=== PATIENT | female | born 1945 | race Caucasian/White ===

== ENCOUNTER 2017-03-23 07:00 | Day surgery (SDC) | payer BC, MEDICARE ==
[~2017-03-23] VITALS: Ht 170.2 cm; Wt 86.8 kg
[~2017-03-23 07:00] MED LIST: ASPI81 PO; HYDR-3129 PO; LOVA1TAB47 PO; METO25 PO; PREM0.622 PO; VICO7.5T PO; WAL-10TA2 PO
[2017-03-23 07:14] VITALS: BP 150/97; PULSE 63; RESP 20; TEMP 98.1; O2SAT 95
[2017-03-23] MEDS ORDERED: CLAR10CA3 PO (07:26)
[2017-03-23] MEDS ORDERED: HYDR-3366 PO (07:26)
[2017-03-23] MEDS ORDERED: HYDR-3113 PO (07:26)
[2017-03-23] MEDS ORDERED: LOVA20TA PO (07:26)
[2017-03-23] MEDS ORDERED: METO25TA3 PO (07:26)
[2017-03-23] MEDS ORDERED: ASPI81CH6 CHEW (07:26)
[2017-03-23] MEDS ORDERED: SODIUM CHLOR 0.9% 1000 ML INJ 1,000 ML IV SCH (07:30)
[2017-03-23] MEDS ORDERED: CHLORHEXIDINE GLUCONATE 2 % 1 PACK (2 CLOTHS) TOPICAL PRN (07:30)
[2017-03-23] MEDS ORDERED: POVIDONE IODINE 5% (ANTISEPSIS KIT) 4 APPLICATIONS EACH NARE PRN (07:30)
[2017-03-23] MEDS ORDERED: ceFAZolin 2 GM PREMIX 50 ML IV SCH (07:30)
[2017-03-23] MEDS ORDERED: METOPROLOL TARTRATE 25 MG TAB PO PRN (07:30)
[2017-03-23] MEDS ORDERED: SODIUM CHLORID 0.9% 500 ML IV PRN (07:30)
[2017-03-23] MEDS ORDERED: LACTATED RINGER'S 1000 ML IV PRN (07:30)
[2017-03-23 08:34] LABS: BICARBONATE 25.5 MEQ/L (21.0-32.0); CALCIUM 8.9 MG/DL (8.5-10.1); CREATININE 0.77 MG/DL (0.50-1.00)
[2017-03-23] MEDS ORDERED: LIDOCAINE HCL 1% 20 ML VIAL ONE (10:33)
[2017-03-23] MEDS ORDERED: MIDAZOLAM HCL 2 MG/2 ML VIAL ONE (10:44)
--- NOTE | 2017-03-23 12:35 | RADRPT ---
EXAM DATE/TIME: 03/23/2017 11:32 [facility] COMPARISON: No previous studies available for comparison. INDICATIONS : Left renal mass BIOPSY SITE: Left kidney Anesthesia and pain control was provided by the Anesthesia department. Prophylactic antibiotics were administered with appropriate pre-procedure timing. DEVICE(S): 1.) 18 gauge Temno core biopsy needle MEDICAL HISTORY : Hypertension. Cardiovascular disease. SURGICAL HISTORY : None. ENCOUNTER: Initial ACUITY: 1 day PAIN SCORE: 0/10 LOCATION: Left flank A total of one core specimen(s) were obtained and sent to the laboratory for pathologic evaluation. PROCEDURE: 1. CT guided renal biopsy. Prior to the procedure informed consent was obtained. Any appropriate prior imaging studies were rev iewed. Using automated exposure control and adjustment of the mA and/or kV according to patient size, radiat ion dose was kept as low as reasonably achievable to obtain optimal diagnostic quality images. DICOM format image data is available electronically for review and comparison. The site was prepped in a sterile fashion. Full sterile technique was used, including cap, mask, thomas rile gloves and gown and a large sterile sheet. Hand hygiene and 2% chlorhexidine and/or betadine/al cohol prep was utilized per protocol for cutaneous antisepsis. The skin and subcutaneous tissues wer e infiltrated with local anesthetic solution. With CT guidance the previously identified target was localized. 2 mild lobes were placed into the le josette. An 18 gauge Temno biopsy needle was advanced between the proton into the central aspect of the lesion as well. Biopsy was performed using the prescribed needle as above. Adequate hemostasis was obtaine d with compression at the puncture site. Follow-up CT scan reveals no hemorrhage. The patient tolerated the procedure well and there were no complications. The patient was returned to the Radiology Outpatient Unit in stable condition. CONCLUSION: Uncomplicated CT guided biopsy. Rancho Cm MD on March 23, 2017 at 12:31 Board Certified Radiologist. This report was verified electronically.
--- NOTE | 2017-03-23 12:47 | PD.RAD ---
Post Procedure Progress Note Pre Procedure Diagnosis: (1) Left kidney mass Post Procedure Diagnosis: (1) Left kidney mass Procedure Date: Mar 23, 2017 Supervising Radiologist: Rancho Cm Estimated blood loss: None Anesthesia: General, Local Plan of Activity Patient to Unit: PACU Patient Condition: Good Additional Comments: Successful biopsy and cryoablation of the left renal mass. Pathology pending Full dictated report to follow See PACS Report for procedural detail/treatment Rancho Cm MD Mar 23, 2017 12:46
[2017-03-23] MEDS ORDERED: HYDROmorphone HCL PF 2 MG/ML VIAL ONE (13:16)
[2017-03-23 14:00] VITALS: BP 135/69; PULSE 61; RESP 20; TEMP 97.9; O2SAT 93
[2017-03-23 14:30] VITALS: BP 145/53; PULSE 67; RESP 19; O2SAT 95
[2017-03-23] MEDS ORDERED: DO NOT ADM ANY ANTICOAGULANT DRUGS PRN (14:30)
--- NOTE | 2017-03-23 14:55 | RADRPT ---
EXAM DATE/TIME: 03/23/2017 11:32 INDICATIONS : Left renal mass Anesthesia and pain control was provided by the Anesthesia department. DEVICE(S): 1.) 16 gauge Cryoablation probe x 2 MEDICAL HISTORY : Hypertension. Cardiovascular disease. SURGICAL HISTORY : None. ENCOUNTER: Initial ACUITY: 1 day PAIN SCORE: 0/10 LOCATION: Left flank PROCEDURE : 1. CT guided cryoablation. Under sterile conditions and using aseptic technique with CT guidance the mass was localized and sati sfactory approach was taken to access the lesion. Using automated exposure control and adjustment of the mA and/or kV according to patient size, radiation dose was kept as low as reasonably achievable to obtain optimal diagnostic quality images. DICOM format image data is available electronically for review and comparison. [address] Cryoprobes were employed using percutaneous technique employing the prescribed probes . A freeze-thaw, freeze-thaw technique was employed and serial imaging demonstrated an ice ball enco mpassing the entire lesion. Post procedure images demonstrate expected postoperative changes without evidence of hematoma. CONCLUSION: Uncomplicated cryoablation as above. Rancho Cm MD on March 23, 2017 at 14:43 Board Certified Radiologist. This report was verified electronically.
[2017-03-23 15:00] VITALS: BP 117/43; PULSE 72; RESP 18; O2SAT 96
[2017-03-23 15:53] LABS: AUTOMATED NEUTROPHIL # 8.9 TH/MM3 (1.8-7.7); BASOPHIL % 0.3 % (0.0-2.0); EOSINOPHIL % 0.3 % (0.0-4.0); HEMATOCRIT 40.6 % (35.0-46.0); HEMOGLOBIN 13.9 GM/DL (11.6-15.3); LYMPH % 8.2 % (9.0-44.0); LYMPHOCYTE # 0.8 TH/MM3 (1.0-4.8); MEAN CELL VOLUME 84.3 FL (80.0-100.0); MEAN CORPUSCULAR HEMOGLOBIN 28.8 PG (27.0-34.0); MEAN CORPUSCULAR HGB CONC 34.2 % (32.0-36.0); MEAN PLATELET VOLUME 8.2 FL (7.0-11.0); MONO % 1.1 % (0.0-8.0); MONOCYTE # 0.1 TH/MM3 (0-0.9); NEUT % 90.1 % (16.0-70.0); PLATELET COUNT 229 TH/MM3 (150-450); RED BLOOD COUNT 4.81 MIL/MM3 (4.00-5.30); RED CELL DISTRIBUTION WIDTH 13.8 % (11.6-17.2); WHITE BLOOD COUNT 9.9 TH/MM3 (4.0-11.0)
[2017-03-23 16:00] VITALS: BP 124/56; PULSE 74; RESP 17; O2SAT 97
--- NOTE | 2017-03-23 19:24 | EKG ---
Date Performed: 03/23/2017 Time Performed: 07:30:08 PTAGE: 71 years EKG: SINUS BRADYCARDIA BORDERLINE ECG Since the prior tracing, there has been no significant wes nge PREVIOUS TRACING : 12/11/2013 16.54 DOCTOR: Johny Cueva Interpretating Date/Time 03/23/2017 19:24:02
== END 2017-03-23 16:30 | disposition home or self-care (01) ==
LOC: HSDC 07:00 → HRIP 07:04 → HROP 16:30
PROVIDERS: ATTEND Urology
DX: C64.2 Malignant neoplasm of left kidney, except renal pelvis (principal); I50.9 Heart failure, unspecified; I25.2 Old myocardial infarction; E78.00 Pure hypercholesterolemia, unspecified; R42 Dizziness and giddiness; I25.10 Atherosclerotic heart disease of native coronary artery without angina pectoris; M19.90 Unspecified osteoarthritis, unspecified site
CPT/HCPCS: 00862; 50200; 50593; 77012; 77013; 80048; 82948; 85025; 88305; 93005; C2618; J1170; J2250; J3010; J7030; 88307

== ENCOUNTER 2017-03-29 09:25 | Day surgery (SDC) | payer BC, MEDICARE ==
[~2017-03-29 09:25] MED LIST changes: -ASPI81 PO; +ASPI81CH6 CHEW; +CLAR10CA3 PO; +HYDR-3113 PO; -HYDR-3129 PO; +HYDR-3366 PO; -LOVA1TAB47 PO; +LOVA20TA PO; -METO25 PO; +METO25TA3 PO; -PREM0.622 PO; -VICO7.5T PO; -WAL-10TA2 PO
[2017-03-29 09:39] VITALS: BP 174/84; PULSE 61; RESP 20; TEMP 98; O2SAT 98
[2017-03-29] MEDS ORDERED: MEDI220T PO (10:16)
[2017-03-29] MEDS ORDERED: IBUP200C PO (10:16)
[2017-03-29] MEDS ORDERED: DIATRIZOATE MEGLUM/DIATRIZOATE SOD 9 ML CUP PO ONE (11:00)
[2017-03-29] MEDS ORDERED: IOHEXOL 350 MG/ML 10 ML VIAL (for RAD DIAG) IVCONTRAST ONE (14:14)
--- NOTE | 2017-03-29 14:28 | RADRPT ---
EXAM DATE/TIME: 03/29/2017 14:06 This report includes an Addendum and supersedes previous reports for this exam. [facility] COMPARISON: CT GUIDED CRYO ABLATION RENAL, LEFT, March 23, 2017, 11:32. INDICATIONS : Abdominal pain following croablation on 03/25 IV CONTRAST: 96 cc Omnipaque 350 (iohexol) IV ORAL CONTRAST: Prescribed oral contrast ingested. RADIATION DOSE: 12.81 CTDIvol (mGy) MEDICAL HISTORY : None SURGICAL HISTORY : Left renal cryoablation ENCOUNTER: Initial ACUITY: 4 - 6 days PAIN SCALE: 8/10 LOCATION: Left lower quadrant TECHNIQUE: Volumetric scanning of the abdomen and pelvis was performed. Using automated exposure control and ad justment of the mA and/or kV according to patient size, radiation dose was kept as low as reasonably achievable to obtain optimal diagnostic quality images. DICOM format image data is available electro nically for review and comparison. FINDINGS: The limited portion of the lung base visualized is clear. There is atherosclerotic plaquing in the co ronary arteries. The appearance of the liver, spleen, pancreas and adrenal glands is within normal limits. The right k idney is unremarkable in appearance. Examination of the left kidney demonstrates changes consistent with the patient's recent cryoablation . No free intraperitoneal air is identified. No significant free fluid is seen within the abdomen or th e retroperitoneum. There is no significant retroperitoneal lymphadenopathy. Imaging through the pelvis is provided. This demonstrates the visualized loops of small and large bow el to be normal in appearance. No inflammatory changes are present. No iliac or inguinal adenopathy i s seen. There is no free fluid within the pelvis. The anterior abdominal wall is intact. CONCLUSION: 1. There are changes in the left kidney consistent with the patient's recent cryoablation. There is n o evidence of complication. 2. No free air or free fluid is identified. No inflammatory changes are evident. No definite abnormal ity to explain the patient's left lower quadrant pain is identified. Rancho Cm MD on March 29, 2017 at 14:24 Board Certified Radiologist. This report was verified electronically. ADDENDUM: Reformatted images in the coronal plane demonstrates subtle swelling and possible inflammatory change involving the outermost margin of the left so last period there is no evidence of abscess in this ar ea. Rancho Cm MD on March 29, 2017 at 15:31 Board Certified Radiologist. This report was verified electronically.
--- NOTE | 2017-03-29 15:32 | RADRPT ---
EXAM DATE/TIME: 03/29/2017 14:49 [facility] COMPARISON : No previous studies available for comparison. INDICATIONS : left sided abdominal pain s/p left renal ablation OBJECTIVE: Temperature: 98.0 Heart Rate: 61 Blood Pressure: 174/84 Respiratory: 20 Oximetry: 98 PNEUMONIA VACCINE: HISTORY OF PRESENT ILLNESS: The patient is a 71-year-old who underwent cryoablation of a left renal mass. 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 The patient did very well po st procedure however the patient returned today secondary to increasing pain predominantly in the lef t groin. PAST MEDICAL HISTORY : Renal cell carcinoma.AR Hypertension.Vertigo Congestive heart failure. Arthritis. PAST SURGICAL HISTORY : Appendectomy. Back Surg Hysterectomy. Left ankle surg Cardiac stents SOCIAL HISTORY : NKDA Aspirin Pinson Vicoden Ibuprofen Loratadine Lavastatin Metoprol Naproxen PHYSICAL EXAMINATION: The patient does not have significant tenderness to abdominal palpation. There are no findings to ind icate peritonitis. There is significant tenderness down the left groin. This changes with manipulation of the left leg. IMAGING STUDIES: CT scan of the abdomen and pelvis was performed. This demonstrates the expected post-ablation changes within the left renal mass. Of note, the on the coronal reformatted imaging there is some subtle inf lammatory change which is touching the left so as muscle. This is felt to likely be the etiology of t he patient's pain. ASSESSMENT: The patient's pain appears to be musculoskeletal in etiology likely from the left iliopsoas muscle. PLAN: The patient will be given Celebrex 200 mg p.o. b.i.d. for 10 days. She was advised to call in 24 hour s and advised us how she is doing doing. If for symptoms worsen or she develops or chills she was adv ised to go to the emergency department. TIME SPENT: 30 minutes. Rancho Cm MD on March 29, 2017 at 15:26 Board Certified Radiologist. This report was verified electronically.
== END 2017-03-29 15:00 | disposition home or self-care (01) ==
LOC: HROP 09:25 → HRIP 09:28 → HROP 15:00
PROVIDERS: ATTEND Radiology Body Imaging
DX: C64.2 Malignant neoplasm of left kidney, except renal pelvis (principal); I11.0 Hypertensive heart disease with heart failure; I50.9 Heart failure, unspecified
CPT/HCPCS: 74177; Q9963; Q9967

== ENCOUNTER 2017-04-01 20:33 | Emergency (ER) | payer MEDICARE, BC ==
[~2017-04-01] VITALS: Ht 165.1 cm; Wt 78.0 kg
[~2017-04-01 20:33] MED LIST changes: +IBUP200C PO; +MEDI220T PO
[2017-04-01 20:39] VITALS: BP 206/94; PULSE 66; RESP 16; TEMP 99.4; O2SAT 99
[2017-04-01] MEDS ORDERED: SODIUM CHLOR 0.9% 1000 ML INJ 1,000 ML IV SCH (22:32)
[2017-04-01 22:36] VITALS: BP 168/70; PULSE 62; RESP 18; O2SAT 98; O2SAT 99
[2017-04-01] MEDS ORDERED: DIAZ5 PO (22:38)
[2017-04-01] MEDS ORDERED: SODIUM CHLORIDE 0.9% FLUSH 10 ML FLUSH IV FLUSH PRN (22:45)
[2017-04-01] MEDS ORDERED: MORPHINE SULFATE 4 MG/ML INJ IV PUSH ONE (22:45)
[2017-04-01] MEDS ORDERED: ONDANSETRON HCL 4 MG/2 ML VIAL IVP ONE (22:45)
[2017-04-01 22:55] LABS: AUTOMATED NEUTROPHIL # 5.6 TH/MM3 (1.8-7.7); BASOPHIL % 0.5 % (0.0-2.0); EOSINOPHIL # 0.1 TH/MM3 (0-0.4); EOSINOPHIL % 0.9 % (0.0-4.0); HEMATOCRIT 37.7 % (35.0-46.0); HEMOGLOBIN 13.2 GM/DL (11.6-15.3); LYMPH % 19.7 % (9.0-44.0); LYMPHOCYTE # 1.6 TH/MM3 (1.0-4.8); MEAN CELL VOLUME 81.8 FL (80.0-100.0); MEAN CORPUSCULAR HEMOGLOBIN 28.7 PG (27.0-34.0); MEAN CORPUSCULAR HGB CONC 35.1 % (32.0-36.0); MONO % 7.9 % (0.0-8.0); MONOCYTE # 0.6 TH/MM3 (0-0.9); PLATELET COUNT 277 TH/MM3 (150-450); RED BLOOD COUNT 4.61 MIL/MM3 (4.00-5.30); RED CELL DISTRIBUTION WIDTH 13.3 % (11.6-17.2); WHITE BLOOD COUNT 7.9 TH/MM3 (4.0-11.0)
--- NOTE | 2017-04-01 23:02 | PD ---
HPI Chief Complaint: Pain: Acute or Chronic Time Seen by Provider: 22:27 Travel History International Travel<30 days: No Contact w/Intl Traveler<30days: No Traveled to known affect area: No History of Present Illness HPI 71-year-old female complains of pain in the left abdomen. She has had it for about 3 days. Pain is severe. Nausea is reported due to pain being so severe. No fever. No bloody urine or diarrhea. The patient's history of diverticulitis and has been eating chunky peanut butter the last few days. Severity moderate. Timing constant. Pt reports L renal cryoablation. PFSH Past Medical History Arthritis: Yes (IN BACK) Blood Disorders: No Anxiety: Yes Depression: Yes Heart Rhythm Problems: No Cancer: No Cardiac Catheterization: Yes Cardiovascular Problems: Yes High Cholesterol: Yes Chest Pain: Yes Congestive Heart Failure: Yes Coronary Artery Disease: Yes Diabetes: No Diminished Hearing: Yes (L EAR) Endocrine: No Gastrointestinal Disorders: No Genitourinary: No Hiatal Hernia: No Hypertension: Yes Immune Disorder: No Musculoskeletal: Yes (ARTHRITIS IN THE SPINE) Neurologic: Yes (VERTIGO) Reproductive: No Respiratory: No Immunizations Current: Yes Myocardial Infarction: Yes Tetanus Vaccination: > 5 Years Influenza Vaccination: No Menopausal: Yes Past Surgical History Appendectomy: Yes Cardiac Surgery: Yes (3 STENTS PLACED) Coronary Artery Bypass Graft: No Coronary Stent: Yes (X3) Hysterectomy: Yes Pacemaker: No Other Surgery: Yes (BACK; L ANKLE FIX) Family History Family Myocardial Infarction: Yes Social History Alcohol Use: No Tobacco Use: No Substance Use: No Allergies-Medications (Allergen,Severity, Reaction): Coded Allergies: No Known Allergies (Verified Allergy, Severe, 04/01/17) Reported Meds & Prescriptions Reported Meds & Active Scripts Active Percocet (Oxycodone-Acetaminophen) 7.5-325 mg Tab 1 Tab PO Q6H PRN Reported Valium (Diazepam) 5 Mg Tab 5 Mg PO TID PRN Naproxen Sodium 220 Mg Tab 220 Mg PO BID PRN Ibuprofen 200 Mg Cap 200 Mg PO Q6H PRN Metoprolol Tartrate 25 Mg Tab 25 Mg PO BID Lovastatin 20 Mg Tab 40 Mg PO DAILY Claritin (Loratadine) 10 Mg Cap 10 Mg PO DAILY Vicodin Es (Hydrocodone-Acetaminophen) 7.5-300 Tab 1 Tab PO Q4H PRN [place] (Hydrocodone-Acetaminophen) 10-325 Mg Tab 1 Tab PO Q8HR PRN Aspirin Low Dose (Aspirin) 81 Mg Chew 81 Mg CHEW DAILY Review of Systems Except as stated in HPI: all other systems reviewed are Neg General / Constitutional: No: Fever Physical Exam Narrative GENERAL: 71 yo F, WNWD, mild distress Vital Signs Date Time Temp Pulse Resp B/P (MAP) Pulse Ox O2 Delivery O2 Flow Rate FiO2 04/01/17 22:36 62 18 168/70 (102) 99 Room Air 04/01/17 22:36 98 Room Air 04/01/17 20:39 99.4 66 16 206/94 (131) 99 SKIN: Warm and dry. HEAD: Atraumatic. Normocephalic. EYES: Pupils equal and round. No scleral icterus. No injection or drainage. ENT: No nasal bleeding or discharge. Mucous membranes pink and moist. NECK: Trachea midline. No JVD. CARDIOVASCULAR: Regular rate and rhythm. RESPIRATORY: No accessory muscle use. Clear to auscultation. Breath sounds equal bilaterally. GASTROINTESTINAL: TTP LLQ. Soft. No rebound. MUSCULOSKELETAL: Extremities without clubbing, cyanosis, or edema. No obvious deformities. NEUROLOGICAL: Awake and alert. No obvious cranial nerve deficits. Motor grossly within normal limits. Five out of 5 muscle strength in the arms and legs. Normal speech. PSYCHIATRIC: Appropriate mood and affect; insight and judgment normal. Data Data Last Documented VS Vital Signs Date Time Temp Pulse Resp B/P (MAP) Pulse Ox O2 Delivery O2 Flow Rate FiO2 04/02/17 03:06 04/01/17 22:36 62 18 99 Room Air 04/01/17 20:39 99.4 VS reviewed Orders Orders Complete Blood Count With Diff (04/01/17 22:32) Comprehensive Metabolic Panel (04/01/17 22:32) Lipase (04/01/17 22:32) Urinalysis - C+S If Indicated (04/01/17 22:32) Ct Abd/Pel W Iv Contrast(Rout) (04/01/17 22:32) Iv Access Insert/Monitor (04/01/17 22:32) Ecg Monitoring (04/01/17 22:32) Oximetry (04/01/17 22:32) Morphine Inj (Morphine Inj) (04/01/17 22:45) Ondansetron Inj (Zofran Inj) (04/01/17 22:45) Sodium Chlor 0.9% 1000 Ml Inj (Ns 1000 M (04/01/17 22:32) Sodium Chloride 0.9% Flush (Ns Flush) (04/01/17 22:45) Iohexol 350 Inj (Omnipaque 350 Inj) (04/02/17 00:07) Hydromorphone Pf Inj (Dilaudid Pf Inj) (04/02/17 01:45) Hydromorphone Pf Inj (Dilaudid Pf Inj) (04/02/17 02:15) Ed Discharge Order (04/02/17 02:45) Labs Laboratory Tests Test 04/01/17 22:45 04/01/17 23:50 White Blood Count 7.9 TH/MM3 Red Blood Count 4.61 MIL/MM3 Hemoglobin 13.2 GM/DL Hematocrit 37.7 % Mean Corpuscular Volume 81.8 FL Mean Corpuscular Hemoglobin 28.7 PG Mean Corpuscular Hemoglobin Concent 35.1 % Red Cell Distribution Width 13.3 % Platelet Count 277 TH/MM3 Mean Platelet Volume 8.0 FL Neutrophils (%) (Auto) 71.0 % Lymphocytes (%) (Auto) 19.7 % Monocytes (%) (Auto) 7.9 % Eosinophils (%) (Auto) 0.9 % Basophils (%) (Auto) 0.5 % Neutrophils # (Auto) 5.6 TH/MM3 Lymphocytes # (Auto) 1.6 TH/MM3 Monocytes # (Auto) 0.6 TH/MM3 Eosinophils # (Auto) 0.1 TH/MM3 Basophils # (Auto) 0.0 TH/MM3 CBC Comment DIFF FINAL Differential Comment Blood Urea Nitrogen 13 MG/DL Creatinine 0.80 MG/DL Random Glucose 114 MG/DL Total Protein 8.0 GM/DL Albumin 4.2 GM/DL Calcium Level 9.2 MG/DL Alkaline Phosphatase 61 U/L Aspartate Amino Transf (AST/SGOT) 16 U/L Alanine Aminotransferase (ALT/SGPT) 18 U/L Total Bilirubin 0.5 MG/DL Sodium Level 126 MEQ/L Potassium Level 3.9 MEQ/L Chloride Level 93 MEQ/L Carbon Dioxide Level 24.7 MEQ/L Anion Gap 8 MEQ/L Estimat Glomerular Filtration Rate 71 ML/MIN Lipase 72 U/L Urine Color LIGHT-YELLOW Urine Turbidity CLEAR Urine pH 7.0 Urine Specific Mallie 1.006 Urine Protein NEG mg/dL Urine Glucose (UA) NEG mg/dL Urine Ketones NEG mg/dL Urine Occult Blood MOD Urine Nitrite NEG Urine Bilirubin NEG Urine Urobilinogen LESS THAN 2.0 MG/DL Urine Leukocyte Esterase NEG Urine RBC 7 /hpf Urine WBC 1 /hpf Urine Squamous Epithelial Cells 1 /hpf Urine Bacteria RARE /hpf Urine Mucus FEW /lpf Microscopic Urinalysis Comment CULT NOT INDICATED MDM Medical Decision Making Medical Screen Exam Complete: Yes Emergency Medical Condition: Yes Medical Record Reviewed: Yes Differential Diagnosis Gastritis, pancreatitis, appendicitis, acute cholecystitis, ascending cholangitis, AAA, perforated viscous, mesenteric ischemia, hepatitis, cystitis, hydronephrosis/hydroureter/nephroureter calculus, mesenteric adenitis, biliary colic Narrative Course CBC & BMP Diagram 04/01/17 22:45 Total Protein 8.0, Albumin 4.2, Calcium Level 9.2, Alkaline Phosphatase 61, Aspartate Amino Transf (AST/SGOT) 16, Alanine Aminotransferase (ALT/SGPT) 18, Total Bilirubin 0.5 Last Impressions Abdomen/Pelvis CT 04/01/172231 Signed Impressions: Service Date/Time: March 23:57 - CONCLUSION: 1. Recent cryoablation changes of left renal mass with mild perinephric edema and mild iliopsoas swelling again noted. No acute changes have developed. 2. No obstruction or acute inflammatory changes. 3. Fatty liver again seen. Omar Carter MD The patient is resting comfortably and feels better, is alert and in no distress. The patients results and examination findings were discussed. The repeat examination is unremarkable and benign. The history, exam, diagnostic testing, and current condition do not suggest any significant pathology to warrant further testing, continued ED treatment, admission, or surgical evaluation at this point. The vital signs have been stable. The patient does not have uncontrollable pain, intractable vomiting, or other significant symptoms. The patient's condition is stable and appropriate for discharge. The patient will pursue further outpatient evaluation with a primary care physician or other designated or consulting physician as indicated in the discharge instructions. The patient expressed understanding and was agreeable with this plan. Diagnosis Primary Impression: Perinephric fluid collection Additional Impression: Muscle swelling Med/Other Pt SpecificInfo: Prescription(s) given Scripts Oxycodone-Acetaminophen (Percocet) 7.5-325 mg Tab 1 TAB PO Q6H Y for PAIN SCALE 6 TO 10, #20 TAB 0 Refills Prov: Rancho Morse MD 04/02/17 Disposition: 01 DISCHARGE HOME Condition: Stable Rancho Morse MD Apr 01, 2017 23:02
[2017-04-01 23:21] LABS: ALBUMIN 4.2 GM/DL (3.4-5.0); AST (GOT) 16 U/L (15-37); BICARBONATE 24.7 MEQ/L (21.0-32.0); BLOOD UREA NITROGEN 13 MG/DL (7-18); CALCIUM 9.2 MG/DL (8.5-10.1); CHLORIDE 93 MEQ/L (98-107); GLOMERULAR FILTRATION RATE 71 ML/MIN (>89); GLUCOSE,RANDOM 114 MG/DL (74-106); SODIUM (NA) 126 MEQ/L (136-145)
[2017-04-01 23:22] LABS: ALT (GPT) 18 U/L (10-53)
[2017-04-01 23:24] LABS: ALKALINE PHOSPHATASE 61 U/L (45-117); TOTAL BILIRUBIN ADULT 0.5 MG/DL (0.2-1.0)
[2017-04-02 00:05] LABS: BACTERIA, URINE RARE /hpf; BILIRUBIN, URINE NEG (NEG); BLOOD, URINE MOD (NEG); GLUCOSE,URINE NEG (NEG); KETONE, URINE NEG (NEG); MUCUS URINE FEW /lpf (OCC); NITRITE,URINE NEG (NEG); SQUAMOUS EPITHELIAL CELL URINE 1 /hpf (0-5); URINE COLOR LIGHT-YELLOW (YELLW/STRAW); URINE LEUKOCYTE ESTERASE NEG (NEG)
[2017-04-02] MEDS ORDERED: IOHEXOL 350 MG/ML 10 ML VIAL (for RAD DIAG) IVCONTRAST ONE (00:07)
--- NOTE | 2017-04-02 00:33 | RADRPT ---
EXAM DATE/TIME: 04/01/2017 23:57 [facility] COMPARISON: CT ABDOMEN & PELVIS W CONTRAST, March 29, 2017, 14:06. INDICATIONS : Left lower quadrant pain with vomiting. IV CONTRAST: 100 cc Omnipaque 350 (iohexol) IV ORAL CONTRAST: No oral contrast ingested. RADIATION DOSE: 14.97 CTDIvol (mGy) MEDICAL HISTORY : Cardiovascular disease. Myocardial infarction. Congestive heart failure.Hypertension. CAD. SURGICAL HISTORY : Appendectomy. Cardiac Cath. ENCOUNTER: Initial ACUITY: 1 day PAIN SCALE: 9/10 LOCATION: Left lower quadrant TECHNIQUE: Volumetric scanning of the abdomen and pelvis was performed. Using automated exposure control and ad justment of the mA and/or kV according to patient size, radiation dose was kept as low as reasonably achievable to obtain optimal diagnostic quality images. DICOM format image data is available electro nically for review and comparison. FINDINGS: LOWER LUNGS: The visualized lower lungs are clear. LIVER: Homogeneous fatty density without lesion. There is no dilation of the biliary tree. No calcified ga llstones. SPLEEN: Normal size without lesion. PANCREAS: Within normal limits. KIDNEYS: Recent cryoablation changes are again seen posteromedially of a left mid zone renal mass. There is mi ld perinephric edema which is not significantly changed. No organized hematoma. Mild swelling of the left iliopsoas muscle is unchanged. ADRENAL GLANDS: Within normal limits. VASCULAR: There is no aortic aneurysm. BOWEL/MESENTERY: The stomach, small bowel, and colon demonstrate no acute abnormality. There is no free intraperitone al air or fluid. ABDOMINAL WALL: Within normal limits. RETROPERITONEUM: There is no lymphadenopathy. BLADDER: No wall thickening or mass. REPRODUCTIVE: Within normal limits. INGUINAL: There is no lymphadenopathy or hernia. MUSCULOSKELETAL: No acute bony abnormality demonstrated. CONCLUSION: 1. Recent cryoablation changes of left renal mass with mild perinephric edema and mild iliopsoas swel ling again noted. No acute changes have developed. 2. No obstruction or acute inflammatory changes. 3. Fatty liver again seen. Omar Carter MD on April 02, 2017 at 0:27 Board Certified Radiologist. This report was verified electronically.
[2017-04-02] MEDS ORDERED: PERC7.5T13 PO (01:42)
[2017-04-02] MEDS ORDERED: HYDROmorphone HCL PF 1 MG/ML VIAL IV PUSH ONE (01:45)
[2017-04-02] MEDS ORDERED: HYDROmorphone HCL PF 2 MG/ML VIAL IV PUSH ONE (02:15)
== END 2017-04-02 03:16 | disposition home or self-care (01) ==
LOC: NEPE 20:33
DX: N28.89 Other specified disorders of kidney and ureter (principal); K76.0 Fatty (change of) liver, not elsewhere classified; E78.00 Pure hypercholesterolemia, unspecified; I11.0 Hypertensive heart disease with heart failure; I50.9 Heart failure, unspecified; I25.10 Atherosclerotic heart disease of native coronary artery without angina pectoris; I25.2 Old myocardial infarction
CPT/HCPCS: 74177; 80053; 81001; 83690; 85025; 96361; 96374; 96375; 99284; J1170; J2270; J2405; J7030; Q9967

== ENCOUNTER → 2017-05-13 | Outpatient (CLI) | payer BC, MEDICARE ==
[~2017-05-13] MED LIST changes: +DIAZ5 PO; +PERC7.5T13 PO
[2017-05-13 10:13] LABS: HEMATOCRIT 38.7 % (35.0-46.0); MEAN CELL VOLUME 83.7 FL (80.0-100.0); MEAN CORPUSCULAR HEMOGLOBIN 28.1 PG (27.0-34.0); MEAN CORPUSCULAR HGB CONC 33.6 % (32.0-36.0); MEAN PLATELET VOLUME 9.2 FL (7.0-11.0); PLATELET COUNT 234 TH/MM3 (150-450); RED BLOOD COUNT 4.62 MIL/MM3 (4.00-5.30); RED CELL DISTRIBUTION WIDTH 13.4 % (11.6-17.2)
[2017-05-13 10:23] LABS: PROTHROMBIN TIME - PATIENT 10.1 SEC (9.8-11.6)
[2017-05-13 10:46] LABS: BICARBONATE 29.9 MEQ/L (21.0-32.0); CALCIUM 9.2 MG/DL (8.5-10.1); CREATININE 0.83 MG/DL (0.50-1.00)
== END ==
LOC: CPRE 09:13
PROVIDERS: ATTEND Thoracic Surgery (Cardiothoracic Vascular Surgery)
DX: Z01.812 Encounter for preprocedural laboratory examination (principal); R59.0 Localized enlarged lymph nodes
CPT/HCPCS: 36415; 80048; 85027; 85610

== ENCOUNTER → 2017-05-19 | Day surgery (SDC) | payer MEDICARE, BC ==
[~2017-05-19] VITALS: Ht 170.2 cm; Wt 82.3 kg
[~2017-05-19] MED LIST changes: +BUPIVACAINE SCH; +CHLORHEXIDINE GLUCONATE 2 % 1 PACK (2 CLOTHS) TOPICAL PRN; +DO NOT ADM ANY ANTICOAGULANT DRUGS PRN; +EPINEPHRINE SCH; +GLYCOPYRROLATE 1 MG/5 ML SYRINGE IV PUSH ONE; +LACTATED RINGER'S 1000 ML IV PRN; +LIDOCAINE HCL 1% PF 5 ML SYRINGE OTHER ONE; +METOPROLOL TARTRATE 25 MG TAB PO PRN; +MIDAZOLAM HCL 2 MG/2 ML VIAL ONE; +NEOSTIGMINE 5 MG/5 ML SYRINGE IV PUSH ONE; +PHENYLEPH/NS 1000 MCG/10 ML SYR IV ONE; +POVIDONE IODINE 5% (ANTISEPSIS KIT) 4 APPLICATIONS EACH NARE PRN; +PROPOFOL 200 MG/20 ML AMP IV ONE; +ROCURONIUM INJ 50 MG/5 ML SYRINGE IV PUSH ONE; +SODIUM CHLORID 0.9% 500 ML INJ 500 ML IV ONE; +SODIUM CHLORID 0.9% 500 ML IV PRN; +ceFAZolin INJ 1,000 MG VIAL IV ONE; +ceFAZolin INJ 1,000 MG VIAL ONE; +ePHEDrine/NS 25 MG/5 ML SYRINGE IV ONE; +oxyCODONE/ACETAMINOPHEN 5 MG/325 MG TAB PO PRN
--- NOTE | 2017-05-19 08:44 | PD.OP ---
cc: Sammy Danielle MD; Kyle Almeida MD Operative Report Date of Surgery: May 19, 2017 Preoperative Diagnosis: Postoperative Diagnosis: Procedure: Cervical mediastinoscopy with lymph node biopsy. Surgeon: Kyle Almeida Manager Market Intelligence(s): Delon Kiran Operation and Findings: PREOPERATIVE DIAGNOSIS 1. Mediastinal Lymphadenopathy 2. Renal Cancer POSTOPERATIVE DIAGNOSIS Same SURGICAL PROCEDURE Cervical mediastinoscopy with lymph node biopsy. SURGEON Kyle Almeida MD REPAIRER SHOE STICKS Arlin Kiran, [facility] ANESTHESIA General Endotracheal CAB WORKER GERALD Painter MD PREPARATION ChloraPrep. NEEDLE, SPONGE, AND INSTRUMENT COUNTS Correct. DRAINS None. COMPLICATIONS None. INDICATIONS The patient is a 71 yo with new findings of mediastinal adenopathy of unknown etiology. The patient is being brought to the operating room for biopsy procedure. DESCRIPTION OF PROCEDURE The patient was brought to the operating room and placed supine on the OR table. Following the induction of adequate general endotracheal anesthesia and placement of appropriate monitoring devices, the neck, chest, and surrounding areas were prepped and draped in the standard sterile fashion. Through an approximately 2.5 cm cervical collar incision, the platysma was divided horizontally, and the strap muscles were retracted laterally. The pretracheal membrane was identified and divided. Thereafter, dissection was continued digitally, and subsequently using the cervical mediastinoscope. Lymph nodes were identified in the R2, R4, and station 7 distribution and biopsied and sent for histologic analysis. Cultures were also obtained. Strict hemostasis was assured. No additional pathology was identified and the closure was undertaken. The incision was infiltrated with 0.25% Marcaine. The strap muscles were reapproximated in the midline using interrupted 2-0 Vicryl and the platysma and subcutaneous fat were approximated with 3-0 Vicryl and the skin reapproximated with 4-0 Vicryl in subcuticular fashion. Dermabond was applied. The patient was awakened from general anesthesia, transferred to the recovery room in stable condition. Kyle Almeida MD May 19, 2017 08:44
--- NOTE | 2017-05-19 10:04 | RADRPT ---
EXAM DATE/TIME: 05/19/2017 09:18 [facility] COMPARISON: No previous studies available for comparison. INDICATIONS : Post mediastinoscopy. MEDICAL HISTORY : Cardiovascular disease. Myocardial infarction. Congestive heart failure.Hypertension. CAD. SURGICAL HISTORY : Appendectomy. Cardiac Cath. ENCOUNTER: Initial ACUITY: 1 day PAIN SCORE: 0/10 LOCATION: Bilateral chest FINDINGS: A single view of the chest demonstrates the lungs to be symmetrically aerated without evidence of mas s, infiltrate or effusion. There is no pneumothorax. The cardiomediastinal contours are unremarkable . Osseous structures are intact. CONCLUSION: Negative for pneumothorax. Tyler Cm MD FACR on May 19, 2017 at 10:01 Board Certified Radiologist. This report was verified electronically.
[2017-05-19 11:03] VITALS: BP 173/73; PULSE 67; RESP 18; TEMP 97.3; O2SAT 97
== END | disposition home or self-care (01) ==
LOC: HCVO 05:41
PROVIDERS: ATTEND Thoracic Surgery (Cardiothoracic Vascular Surgery)
DX: I88.8 Other nonspecific lymphadenitis (principal); C64.9 Malignant neoplasm of unspecified kidney, except renal pelvis; E04.1 Nontoxic single thyroid nodule; F41.9 Anxiety disorder, unspecified; Z87.891 Personal history of nicotine dependence
CPT/HCPCS: 00528; 39402; 71045; 87015; 87070; 87102; 87116; 87205; 87206; 88305; 88312; J0690; J2250; J2370; J2710; J3010; J7040; J7120